=== PATIENT | female | born 1985 | race Caucasian/White ===

== ENCOUNTER 2018-03-31 09:06 | Emergency (ER) | payer OTHER ==
[~2018-03-31] VITALS: Ht 157.5 cm; Wt 108.0 kg
[~2018-03-31 09:06] MED LIST: CLINDAMYCIN HC150 MG PO; HYDROCHLOROTH12.5 MG; MELOXICAM15 MG PO; NORCO 5-325 TA1 EACH PO
[2018-03-31] MEDS ORDERED: XANAX0.5 MG PO (09:23)
[2018-03-31] MEDS ORDERED: NORCO 5-325 TA1 EACH PO (10:34)
== END 2018-03-31 10:52 | disposition short-term general hospital (02) ==
LOC: ED 09:06
DX: S93.402A Sprain of unspecified ligament of left ankle, initial encounter (principal); I10 Essential (primary) hypertension; F17.200 Nicotine dependence, unspecified, uncomplicated; Z88.1 Allergy status to other antibiotic agents; Z88.0 Allergy status to penicillin; Z88.5 Allergy status to narcotic agent; X50.9XXA Other and unspecified overexertion or strenuous movements or postures, initial encounter
CPT/HCPCS: 73610; 99283

== ENCOUNTER 2020-10-02 06:20 | Day surgery (SDC) | payer OTHER ==
[~2020-10-02] VITALS: Ht 157.5 cm; Wt 111.4 kg
--- NOTE | ~2020-10-02 | OR ---
[facility] [address], [place] [address] Draft DATE OF OPERATION: 10/02/2020 SURGEON: Olimpia Bhaena MD PREOPERATIVE DIAGNOSES: 1. Chronic frontal sinusitis. 2. Chronic ethmoiditis. 3. Chronic sphenoiditis. 4. Chronic maxillary sinusitis. 5. Deviated nasal septum. 6. Turbinate hypertrophy. 7. Recurrent acute sinusitis. 8. Sinus headaches. 9. Turbinate hypertrophy with nasal obstruction. POSTOPERATIVE DIAGNOSES: 1. Chronic frontal sinusitis. 2. Chronic ethmoiditis. 3. Chronic sphenoiditis. 4. Chronic maxillary sinusitis. 5. Deviated nasal septum. 6. Turbinate hypertrophy. 7. Recurrent acute sinusitis. 8. Sinus headaches. 9. Turbinate hypertrophy with nasal obstruction. PROCEDURES: 1. Bilateral endoscopic frontal ethmoidectomy, 058851-68. 2. Nasal septoplasty, 33155. 3. Bilateral endoscopic sphenoidotomy, 39426-49. 4. Bilateral endoscopic maxillary antrostomies, 93664-97. 5. Submucous dissection of right inferior turbinates, 62777. INDICATIONS: This is a 34-year-old female, who has had more than a decade of sinus infections, progressive chronic sinusitis symptoms, i.e. frontal occipital periorbital headaches and has been on antibiotics off and on as many as 3 or 4 times per year for multiple years going. She has tried nasal rinses, fluticasone, and Sudafed, all without much improvement. CT scan demonstrated chronic disease and also showed evidence of recirculation in both maxillary sinuses with multiple perforations in the uncinate PATIENT NAME: PEPPER SUAREZ OPERATIVE REPORT DATE OF : 85 REPORT #: [id number] PHYSICIAN: OLIMPIA BAHENA MD PCP: DREA TENA PAC REPORT IS CONFIDENTIAL AND NOT TO BE RELEASED WITHOUT AUTHORIZATION [facility] [address] [place], [place] [address] Draft process on the left side and inflammatory tissue in the maxillary sinus, presumably caused by previous infection breaking through the uncinate process. Also, an accessory ostium noted on the right side. The patient also had deviation of septum with a spur inferiorly on the left and high septal deflection on the right with narrowing the ostiomeatal units and congesting that region with inflammatory tissue. The patient also had a narrow nasal syndrome with medialization in the maxillary niman at the expense of the nasal airway, which further crowded the drainage pathways. Because of medical failure with the above abnormalities noted, the patient's surgery from the above procedures were indicated. Also, massive turbinate hypertrophy of middle inferior turbinates were noted. DESCRIPTION OF PROCEDURE: The patient was placed in the supine position, had an orotracheal intubation, was placed under general anesthesia. The left side was approached first because the way of the septum was deviated. Injecting the middle turbinates and lateral wall with 1.5 mL of 1% lidocaine with 1:100,000 epinephrine. The anterior-inferior portion middle turbinate was trimmed away with a Thru-Cut ethmoid punch scissors and the microdebrider. The uncinate process which was thickened with inflammatory disease tissue was incised with a sickle knife, removing entirely with the backbiting forceps and a Thru-Cut ethmoid punch. Then, going through the ethmoid bulla with a curette, the Kerrison forceps were used to resect completely all of the intersinus ethmoid septations, working its way back and also using the Thru-Cut ethmoid punch. Then, using the microdebrider to precisely remove the ragged mucosa and shards of bone. A trans-ethmoid sphenoidotomy was performed going into the smaller of the sphenoid sinuses. Inflammatory tissue and polypoid tissue were noted to block it, which was seen on CT scan. After the rostrum was completely removed, so that its aperture was greater than 1 cm, the scope was switched to a 70-degree scope and dissection was carried anteriorly going against the base of the skull up into the frontal recess. The beak of the frontal sinus was removed with the Kerrison frontal sinus punch opening up the frontal sinus very widely. Removing all the rest of the ethmoid architecture, the intersinus septations, and then ragged mucosa was trimmed, the resulting labyrinth was photographed with the scope and the camera. Nasal pore at least half of the section with mupirocin ointment was placed up into the sinus labyrinth. The septum was then repaired by injecting with 2 mL of lidocaine and also 3 mL of 0.5% Marcaine with 1:200,000 epinephrine. After making incision at the junction of the floor, the mucoperichondrium was lifted up with a sharp Lajas dissection and then Lajas D knife used to separate the bone from cartilage, and then a bilateral elevation of mucoperiosteum was obtained. The Gannon scissors were used to cut the deviated pieces of the septal bone. Shanae forceps was used to resect the pieces as they were cut with the Gannon scissors and deviated maxillary crest and a spur was removed, first of all with cartilage removing it, but then an angulated chisel was used to cut the maxillary crest and removing an opening that up. Flaps were then based together with 4-0 gut and the anterior incision closed with 4-0 chromic. PATIENT NAME: PEPPER SUAREZ OPERATIVE REPORT DATE OF : 85 REPORT #: [id number] PHYSICIAN: OLIMPIA BAHENA MD PCP: DREA TENA PAC REPORT IS CONFIDENTIAL AND NOT TO BE RELEASED WITHOUT AUTHORIZATION [facility] [address], [place] [address] Draft Same dissection then proceeded on the right side as it did on the left. The lidocaine was again injected on that side about 1.5 mL. The anterior-inferior portion middle turbinates were trimmed away and then uncinate process removed, again the diseased mucosa was noted throughout the ethmoid labyrinth and even on the uncinate process. Removing it, on widening the maxillary ostium joining up the natural to any accessory ostia, the dissection proceeded, going all the way back the ethmoids to the sphenoid. The trans-ethmoid sphenoidotomy again performed on that side, then changing to a 70-degree scope after removing the rostrum. The dissection was carried forward against the base of skull, cutting it cleanly without stripping mucosa from the limits of the dissection. Wide frontal sinusotomy again done with the assistance of the frontal sinus Kerrison punch and then more nasal pore was placed. The inferior turbinate was reduced by doing a submucous resection, injecting with a 1.5 mL of lidocaine and a stab incision made anteriorly and endoscopically guiding the dissection lifting up the mucoperiosteal of the caudal dissection tool and a scalpel. Then, the turbinate was broken into little pieces, removed from the airway with a curette and the caudal dissection tool. Estimated blood loss for the whole procedure was less than 100 mL. There were no complications. No packing required just the nasal port to help with lateralization of the middle turbinate remnant. Olimpia Bahena MD [facility]/JAME /[id number] Copies: ~ PATIENT NAME: PEPPER SUAREZ OPERATIVE REPORT DATE OF : 85 REPORT #: [id number] PHYSICIAN: OLIMPIA BAHENA MD PCP: DREA TENA PAC REPORT IS CONFIDENTIAL AND NOT TO BE RELEASED WITHOUT AUTHORIZATION
[~2020-10-02 06:20] MED LIST changes: +XANAX0.5 MG PO
[2020-10-02] MEDS ORDERED: SUDAFED 12-HOU120 MG PO (06:39)
--- NOTE | 2020-10-02 11:04 | NUR ---
PT ARRIVES BACK TO DS RM 1 FROM PACU DROWSY. PT ABLE TO ANSWER QUESTIONS. WHEN ASKED ABOUT PAIN, PT STATES "THIS SUCKS" AND DOES NOT GIVE NUMERICAL RATING. PT ENCOURAGED TO TAKE SMALL SIPS OF WATER, COMPLAINS OF THROAT HURTING. PT ENCOURAGED TO TRY SMALL BITES OF PUDDING BEFORE ORAL PAIN MEDICINE. PT FRIEND, DIANA AT BEDSIDE. CALL LIGHT WITHIN REACH.
--- NOTE | 2020-10-02 11:45 | NUR ---
PT USES CALL LIGHT TO ALERT RN OF URGE TO VOID. PT ENCOURAGED TO SIT AT BEDSIDE PRIOR TO STANDING, DENIES DIZZINESS OR NAUSEA. PT HAS STEADY GAIT WITH RN ASSIST, ABLE TO VOID QS. BACK TO DS RM 1, DRIP PAD SATURATED AT THIS TIME. DRIP PAD CHANGED AND CLOTS NOTED. PT INSTRUCTED NOT TO BLOW NOSE. 1200: DRIP PAD SATURATED WITH BLOOD THAT DRIPS DOWN PT LIPS AND ON TO PT GOWN. PT FACE CLEANED WITH WET WIPES AND NEW DRIP PAD PLACED. PT EDUCATED ABOUT SURGERY AND BLEEDING AT THIS TIME. PRESCRIPTION CALLED IN TO [facility], PHARMACY STATES BEING "BACKED UP" AND CAN'T GUARANTEE PRESCRIPTION WILL BE FILLED TODAY. PT INFORMED OF PREFERRED PHARMACY AND WOULD LIKE MEDS SENT TO [facility] INSTEAD. THIS RN CALLS IN PRESCRIPTION TO [facility] WHO STATES THEY WILL REACH OUT TO [facility] FOR PT INFORMATION. 1230: DRIP PAD SATURATED WITH RED DRAINAGE AND CHANGED AT THIS TIME. PT PROVIDED EXTRA GAUZE AND PAPER TAPE TO TAKE HOME. PT WOULD LIKE TO DC HOME, DENIES NAUSEA AND STATES PAIN IS "MANAGEABLE." 1300: THIS RN STEPS OFF FLOOR AND CARE IS TRANSFERRED TO [facility] AT THIS TIME.
[2020-10-02] MEDS ORDERED: ACETAMINOPHEN-1 EAC1 PO (12:47)
--- NOTE | 2020-10-02 14:06 | NUR ---
5057 DR MOREIRA STOPPED TO TALK WITH PT. DRIP PAD CHANGED JUST BEFORE GOING AND SOME GUAZE SUPPLIES GIVEN AND EMESIS BAG
--- NOTE | 2020-10-02 15:12 | NUR ---
10/02/20 1512 Tatum,Danette 0953 PT ARRIVED TO PACU WITH ORAL AIRWAY IN PLACE, JAW THRUST USED TO MAINTAIN AIRWAY. RESP EVEN AND UNLABORED. VSS. 0954 PT STARTED COUGHING AND ORAL AIRWAY REMOVED, SMALL AMOUNT OF BRIGHT RED DRAINAGE NOTED IN MOUTH AND NOSE. SUCTION USED. 0958 PT STARTS FORCFULLY BLOWING NOSE AND MORE BRIGHT RED DRAINAGE NOTED IN O2 MASK AND ON BLACKETS IN FROUNT OF THE PT. RN USES SUCTION AND APPLIES MUSTASHE DRESSING, RN TRIES TO REORIENT PT TO PACU AND EDUCATE PT ABOUT NOT BLOWING NOSE AT THIS TIME.
--- NOTE | 2020-10-08 17:54 | PATH ---
[facility] [address] [place], [place] [address] Signed SPECIMEN(S): A LEFT SINUS CONTENTS SPECIMEN(S): B RIGHT SINUS CONTENTS SPECIMEN SOURCE: A. LEFT SINUS CONTENTS B. RIGHT SINUS CONTENTS CLINICAL HISTORY: Pre: Recurrent chronic sinusitis. Post: ESS, septoplasty. FINAL PATHOLOGIC DIAGNOSIS: A. Sinus contents, left, sinusectomy: - Chronic sinusitis. - Fragments of sinonasal inflammatory polyp(s). - Fragment of mature bone with no histopathologic abnormality. B. Sinus contents, right, sinusectomy: - Chronic sinusitis. - Fragment of bone with no histopathologic abnormality. COMMENT: As part of [facility] Quality Improvement Program, part A of this case was reviewed by another member of our pathology staff. Scattered eosinophils are present in both left and right sinus mucosa, but are not the predominant type of inflammatory cell present. NAL:NRT:cml:C2NR MICROSCOPIC EXAMINATION: Histologic sections of all submitted blocks are examined by light microscopy. These findings, together with the gross examination, support the pathologic diagnosis. GROSS DESCRIPTION: Two specimens are received in two containers, labeled "HS." A. The specimen, labeled "HS," and designated on the requisition "left sinus contents," is received in formalin and consists of multiple fragments of brown-thompson to hemorrhagic tissue and clot (2.5 x 2.0 x 0.4 cm in aggregate). The specimen is submitted entirely in cassette (A1) following decalcification in Decal Stat. B. The specimen, labeled "HS," and designated on the requisition "right sinus contents," is received in formalin and consists of multiple fragments of pink-thompson to hemorrhagic soft tissue and bone PATIENT NAME: PEPPER SUAREZ PATHOLOGY DATE OF : 85 REPORT #: [id number] PHYSICIAN: ASAF WALTON PCP: DREA TENA PAC REPORT IS CONFIDENTIAL AND NOT TO BE RELEASED WITHOUT AUTHORIZATION [facility] [address] [place], [place] [address] Signed (3.0 x 2.8 x 0.4 cm in aggregate). The specimen is submitted entirely following decalcification in Decal Stat. (under the direct supervision of a pathologist) The Gross Description was prepared using a voice recognition system. The report was reviewed for accuracy; however, sound-alike word errors, addition and/or deletions may occur. If there is any question about this report, please contact Client Services. PERFORMING LABORATORY: The technical component was performed by [facility] [address] (Middle Card Tender: Jahaira Greenfield MD; CLIA# [id number]). [facility] [address] [address] (CLIA# [id number]). Diagnostician: Lianna Lima MD Pathologist Electronically Signed 10/08/2020 Copies: ~ PATIENT NAME: PEPPER SUAREZ PATHOLOGY DATE OF : 85 REPORT #: [id number] PHYSICIAN: ASAF WALTON PCP: DREA TENA PAC REPORT IS CONFIDENTIAL AND NOT TO BE RELEASED WITHOUT AUTHORIZATION
== END 2020-10-02 13:10 | disposition home or self-care (01) ==
LOC: DS 06:20 → OPS 06:20 → DS 06:45 → OPS 06:45
PROVIDERS: ATTEND Otolaryngology
PROC: 09B Ear, Nose, Sinus, Excision (ICD-10-PCS; 2020-10-02)
PROC: 09B Ear, Nose, Sinus, Excision (ICD-10-PCS; 2020-10-02)
PROC: 09BM0ZZ Excision of Nasal Septum, Open Approach (ICD-10-PCS; 2020-10-02)
PROC: 09BL0ZZ Excision of Nasal Turbinate, Open Approach (ICD-10-PCS; 2020-10-02)
PROC: 09BV0ZZ Excision of Left Ethmoid Sinus, Open Approach (ICD-10-PCS; principal; 2020-10-02 06:45)
PROC: 09BU0ZZ Excision of Right Ethmoid Sinus, Open Approach (ICD-10-PCS; 2020-10-02 06:45)
DX: J01.80 Other acute sinusitis (principal); J32.8 Other chronic sinusitis; J34.2 Deviated nasal septum; J34.3 Hypertrophy of nasal turbinates; J34.89 Other specified disorders of nose and nasal sinuses; J33.8 Other polyp of sinus; F41.9 Anxiety disorder, unspecified; Z20.828 Contact with and (suspected) exposure to other viral communicable diseases
CPT/HCPCS: 00160; J0330; J1100; J2001; J2250; J2405; J2704; J3490; J7121

== ENCOUNTER 2024-11-17 22:36 | Emergency (ER) | payer BC ==
[~2024-11-17] VITALS: Ht 157.5 cm; Wt 101.2 kg
[~2024-11-17 22:36] MED LIST changes: +ACETAMINOPHEN-1 EAC1 PO; +SUDAFED 12-HOU120 MG PO
[2024-11-18] MEDS ORDERED: IBUPROFEN 800 MG TAB PO ONE (02:00)
[2024-11-18 02:08] VITALS: BP 127/77
== END 2024-11-18 02:10 | disposition home or self-care (01) ==
LOC: ED 22:36
DX: S93.402A Sprain of unspecified ligament of left ankle, initial encounter (principal); S93.602A Unspecified sprain of left foot, initial encounter; S80.01XA Contusion of right knee, initial encounter; W10.9XXA Fall (on) (from) unspecified stairs and steps, initial encounter; I10 Essential (primary) hypertension; E78.00 Pure hypercholesterolemia, unspecified; F17.200 Nicotine dependence, unspecified, uncomplicated
CPT/HCPCS: 73610; 73630; 99283; A9270